=== PATIENT | female | born 1995 | race African-American/Black ===

== ENCOUNTER 2022-10-03 03:58 | Emergency (ER) | payer MEDICAID, OTHER ==
[~2022-10-03] VITALS: Ht 167.6 cm; Wt 69.6 kg
[2022-10-03] MEDS ORDERED: HYDROCODONE/ACETAMINOPHEN 5/325MG TABLET PO STA (05:45)
[2022-10-03] MEDS ORDERED: T3 PO (06:26)
[2022-10-03] MEDS ORDERED: NAPR-681 PO (06:26)
[2022-10-03 06:56] VITALS: BP 120/77
== END 2022-10-03 07:19 | disposition home or self-care (01) ==
LOC: ER 03:58
DX: S52.134A Nondisplaced fracture of neck of right radius, initial encounter for closed fracture (principal); W01.0XXA Fall on same level from slipping, tripping and stumbling without subsequent striking against object, initial encounter; Y93.89 Activity, other specified; Y92.89 Other specified places as the place of occurrence of the external cause; Y99.8 Other external cause status
CPT/HCPCS: 29105; 73080; 73090; 81025; 99284; A4565